=== PATIENT | female | born 1955 | race Caucasian/White ===

== ENCOUNTER 2018-10-16 12:14 | Inpatient (IN) | payer MEDICARE, SELFPAY ==
[2018-10-16] MEDS ORDERED: Ondansetron PF 4 MG/2 ML Vial IVP PRN ×2 (16:12→21:43)
[2018-10-16] MEDS ORDERED: Ondansetron ODT 4 MG TAB PO PRN (16:12)
[2018-10-16] MEDS ORDERED: Acetaminophen 650 MG Suppository PR PRN (16:12)
[2018-10-16] MEDS ORDERED: Acetaminophen 500 MG TAB PO PRN (16:12)
[2018-10-16] MEDS ORDERED: Bisacodyl 10 MG SUPP PR PRN (16:12)
[2018-10-16] MEDS ORDERED: Sodium Chloride 0.9% 1,000 ML IV SCH ×2 (16:15→22:00)
[2018-10-16] MEDS ORDERED: Morphine 2 MG/ML SYRINGE SLOW IVP PRN ×2 (16:35→22:21)
[2018-10-16] MEDS ORDERED: Morphine 2 MG/ML SYRINGE SLOW IVP SCH (16:45)
[2018-10-16 17:11] LABS: INR-International Normal Ratio 1.1; Prothrombin Time 14.5 SEC (12.0-14.7)
[2018-10-16 17:23] LABS: Hemoglobin 11.9 g/dL (12.0-16.0); Mean Corpuscular HGB CONC 32.2 g/dL (32.0-36.0); Mean Corpuscular Hemoglobin 29.7 pg (27.0-31.0); Mean Corpuscular Volume 92.4 fL (78.0-98.0); Mean Platelet Volume 9.9 fL (7.4-10.4); Platelet Count 497 thou/uL (130-400); RBC Distribution Width 19.8 % (11.5-14.5); Red Blood Cell (RBC) Count 4.02 mill/uL (4.20-5.40); White Blood Cell (WBC) Count 6.7 thou/uL (4.8-10.8)
[2018-10-16 17:30] LABS: ALT (SGPT) 103 U/L (8-55); AST (SGOT) 98 U/L (5-34); Albumin 3.1 g/dL (3.4-4.8); Alkaline Phosphatase 1098 U/L (40-150); Anion Gap 22 mmol/L (10-20); BUN (Urea Nitrogen) 33 mg/dL (9.8-20.1); Bilirubin, Total 10.2 mg/dL (0.2-1.2); Calc. Creatinine Clearance 20 mL/min (70-130); Calcium 11.9 mg/dL (7.8-10.44); Carbon Dioxide 35 mmol/L (23-31); Chloride 79 mmol/L (98-107); Estimated GFR-MDRD 29; Globulin 3.7 g/dL (2.4-3.5); Glucose 103 mg/dL (80-115); Potassium 4.8 mmol/L (3.5-5.1); Protein, Total 6.8 g/dL (6.0-8.3); Sodium 131 mmol/L (136-145)
[2018-10-16 17:31] LABS: Anisocytosis SLIGHT = 6-15 cells (100X) (0-5/hpf); Band 48 % (5-11); Lymphocytes 14 % (21-51); MDiff Complete? YES; Metamyelocyte 12 % (0-0); Monocytes 2 % (0-10); Myelocyte 1 % (0-0); Neutrophil 23 % (42-75); PLT Morphology Comment Appears Increased; Polychromasia SLIGHT = 2-3 cells (100X) (0-2/hpf); Reflex for Review?? YES; Target Cells SLIGHT = 2-5 cells (100X) (0-1/hpf); Toxic Granulation SLIGHT; Vacuoles SLIGHT
[2018-10-16] MEDS ORDERED: Piperacillin/Tazobactam 3.375 GM in Sodium Chloride 0.9% 100 ML IVPB SCH ×2 (18:00→23:59)
[2018-10-16] MEDS ORDERED: Neomycin-Polymyxin 1 ML AMP ONE (19:09)
[2018-10-16] MEDS ORDERED: Vancomycin HCl 1 GM in Premix Bag 1 BAG IVPB SCH (19:30)
[2018-10-16] MEDS ORDERED: Famotidine/PF 20 mg/2ml Vial ONE (19:31)
[2018-10-16] MEDS ORDERED: Fentanyl 250 MCG/5 ML VIAL ONE (19:31)
--- NOTE | 2018-10-16 19:35 | CT ---
CT ABDOMEN AND PELVIS WITHOUT CONTRAST: 10/16/18 PROVIDED CLINICAL HISTORY: Abdominal pain. FINDINGS: No comparisons. There are innumerable subcentimeter pulmonary nodules seen involving the visualized lung bases compat ible with metastatic disease. There are multiple hypodense hepatic masses involving both lobes of the liver compatible with hepatic metastatic disease. The largest lesion measures approximately 6.2 cm in greatest transverse dimensio n. There is conspicuous pneumoperitoneum and free intraperitoneal fluid present primarily about the righ t hepatic margin anteriorly. There is a markedly distended cecum present demonstrating focal transiti on to more normal caliber colon at the level of the hepatic flexure where there is conspicuous mural thickening and irregularity of the mucosa. There are adjacent enlarged pericolonic lymph nodes. The s olid abdominal organs are suboptimally evaluated in the absence of IV contrast material but demonstra te an otherwise unremarkable unenhanced CT appearance. There are scattered loops of gas and debris fi lled small bowel in an overall nonspecific manner. Vascular calcifications are seen. The osseous structures demonstrate no concerning lytic or blastic lesions. Postoperative changes invo lving the left hip are demonstrated. An enteric catheter is noted, the tip of which terminates in the gastric body laterally. IMPRESSION: 1. Free intraperitoneal air and free intraperitoneal fluid, compatible with perforated viscus, l ikely the right colon given its size. Findings communicated to Dr. Damon via telephone, 6:49 p.m., . 2. Right colon mass with hepatic and pulmonary metastatic disease. POS: [facility]
[2018-10-16] MEDS ORDERED: Phenylephrine HCL 10 MG/ML VIAL ONE (19:37)
[2018-10-16] MEDS: Sodium Chloride 0.9% 1,000 ML IV SCH (19:41)
[2018-10-16] MEDS ORDERED: Albumin 5% 500 ML ONE (20:05)
[2018-10-16] MEDS ORDERED: Midazolam HCl 2 mg/2 ml Vial ONE (20:37)
[2018-10-16] MEDS ORDERED: Famotidine/PF 20 mg/2ml Vial SLOW IVP SCH (21:00)
[2018-10-16] MEDS ORDERED: Succinylcholine Chloride 20 MG/ML 10 ml SYRINGE FS ONE (21:05)
[2018-10-16] MEDS ORDERED: PHENYLEPHRINE-NS 100 MCG/ML 10 ML SYRINGE ONE (21:05)
[2018-10-16] MEDS ORDERED: PROPOFOL 200 MG/20 ML VIAL ONE (21:05)
[2018-10-16] MEDS ORDERED: Morphine 10 MG/ML VIAL SLOW IVP PRN (21:43)
[2018-10-16] MEDS ORDERED: Promethazine HCl 25 MG/ML VIAL IM PRN (21:43)
[2018-10-16] MEDS ORDERED: hydrALAZINE 20 MG/ML VIAL SLOW IVP PRN (21:43)
[2018-10-16] MEDS ORDERED: Morphine 4 MG/ML VIAL SLOW IVP PRN (21:43)
[2018-10-16] MEDS ORDERED: Ventilator Sedation Protocol 1 EACH FS SCH (21:46)
[2018-10-16] MEDS ORDERED: Propofol 1,000 MG/100 ML VIAL IV PRN (22:21)
[2018-10-16] MEDS ORDERED: fentaNYL Citrate/PF 2,000 MCG in Sodium Chloride 0.9% 60 ML IV SCH (22:21)
[2018-10-16] MEDS ORDERED: Lorazepam 2 MG/ML VIAL SLOW IVP PRN (22:21)
[2018-10-16] MEDS ORDERED: DISCONTINUE PREVIOUS NARCOTIC PAIN MEDICATIONS AND BENZODIAZEPINES FS SCH (22:21)
[2018-10-16] MEDS ORDERED: Fentanyl CADD 250 ML IVPB SCH (22:21)
[2018-10-16] MEDS ORDERED: Fentanyl BOLUS 250 ML IVPB PRN (22:21)
[2018-10-16] MEDS ORDERED: Propofol BOLUS 1,000 MG/100 ML VIAL IV PRN (22:21)
[2018-10-16 22:32] LABS: Base Excess (BEa) 2.8 mEq/L (-2.0 to +3.0); CO2 Tension 52.9 mmHg (35.0-45.0); Calcium, Ionized 1.11 mmol/L (1.12-1.30); Carboxyhemoglobin (COHb) 1.1 gm% (0.0-3.0); Potassium - ABG Lab 4.03 mmol/L (3.70-5.30); pH, Arterial 7.36 (7.35-7.45)
[2018-10-16 22:33] LABS: Puncture Site RFEMORAL
[2018-10-16 22:34] LABS: ALV-art Gradient 152.075 (0-20)
[2018-10-16] MEDS ORDERED: Norepinephrine 8 MG/250 ML BAG IVPB PRN (22:41)
[2018-10-16] MEDS: Sodium Chloride 0.9% 1,000 ML IV PRN (23:30)
[2018-10-17] MEDS: D5 1/2 NS w/20 mEq KCL 1,000 ML IV SCH ×2 (00:32→09:55)
[2018-10-17] MEDS: Acetaminophen 1,000 MG in Premix Bag 1 BAG IVPB SCH ×4 (00:33→18:18)
[2018-10-17] MEDS: Piperacillin/Tazobactam 3.375 GM in Sodium Chloride 0.9% 100 ML IVPB SCH ×4 (00:34→18:19)
--- NOTE | 2018-10-17 00:53 | HP ---
PRIMARY CARE PROVIDER: Parul Houston MD PRIMARY ONCOLOGIST: Cceilio Lake MD CHIEF COMPLAINT: Abdominal pain. HISTORY OF PRESENT ILLNESS: This is a 63-year-old female, who presented to the Cancer Clinic to initiate chemotherapy after a recent diagnosis of metastatic moderately differentiated adenocarcinoma of the colon. The patient underwent recent liver biopsy in August 2018 with confirmation of metastatic colorectal carcinoma. The patient has been followed at the Cancer Clinic with initiation of chemotherapy. The patient states she had increasing abdominal pain in the last 24 hours with last bowel movement on 10/13/2018. The patient admitted to nausea and inability to hold food down without vomiting every time she swallowed liquid or food. The patient states she has decreased urination, but no specific fever. The patient states her abdomen has been firm with difficulty taking a deep breath. The patient denied any recent trauma, injury, or recent diarrhea. The patient denied taking any specific home remedy for relief. The patient states the pain became unbearable, presenting to the Cancer Clinic for her routine followup. The patient was noted with severe abdominal pain and distention, and referred to the hospitalist service for evaluation. PAST MEDICAL HISTORY: 1. Stage IV colon cancer with hepatic metastasis. 2. Severe protein-calorie malnutrition. 3. Jaundice. 4. Iron deficiency anemia. 5. Gastroesophageal reflux disease. 6. Tobacco abuse. PAST SURGICAL HISTORY: 1. Status post AV malformation repair. 2. Status post CT-guided liver biopsy. 3. Status post EGD. CURRENT MEDICATIONS: 1. Pepcid 40 mg p.o. nightly. 2. Tramadol 50 mg p.o. t.i.d. p.r.n. 3. Multivitamin one tablet p.o. daily. 4. Phenergan 25 mg p.o. q.6 hours p.r.n. ALLERGIES: NO KNOWN DRUG ALLERGIES. FAMILY HISTORY: Positive for colon cancer in her sister. SOCIAL HISTORY: The patient is , accompanied by her in the hospital. Resides in [place], [place]. Retired. Smokes up to a pack of cigarettes daily. No alcohol or illicit drug use. REVIEW OF SYSTEMS: CONSTITUTIONAL: Negative for weight loss or gain, ability to conduct usual activities. SKIN: Negative for rash, itching. EYES: Negative for double vision, pain. ENT/MOUTH: Negative for nose bleeding, neck stiffness, pain, tenderness. CARDIOVASCULAR: Negative for palpitations, dyspnea on exertion, orthopnea. RESPIRATORY: Negative for shortness of breath, wheezing, cough, hemoptysis, fever or night sweats. GASTROINTESTINAL: Negative for poor appetite, abdominal pain, heartburn, nausea, vomiting, constipation, or diarrhea. GENITOURINARY: Negative for urgency, frequency, dysuria, nocturia. MUSCULOSKELETAL: Negative for pain, swelling. NEUROLOGIC/PSYCHIATRIC: Negative for anxiety, depression. ALLERGY/IMMUNOLOGIC: Negative for skin rash, bleeding tendency. Otherwise negative except as stated per HPI. PHYSICAL EXAMINATION: VITAL SIGNS: Currently, blood pressure 83/62, pulse 120, respiratory rate is 18, temperature 97.5 degrees Fahrenheit, and O2 saturation 94% on 2 L/minute via nasal cannula. GENERAL APPEARANCE: This is a 63-year-old female, ill appearing, cachectic, lethargic, in moderate distress. HEENT: Pupils are equal, round, reactive to light and accommodation. Extraocular muscles are intact. Sunken globes bilaterally. Nares patent. OP is clear. Teeth in poor repair. NECK: Supple. No cervical adenopathy. No thyromegaly. No carotid bruits. No JVD appreciated. Cervical spine with full active and passive range of motion. No meningeal signs noted. CHEST: Diminished breath sounds in the bases bilaterally. CARDIOVASCULAR: S1 and S2 with tachycardia. No murmur, rub, or gallop appreciated. ABDOMEN: Hard and firm with tenderness to palpation diffusely. Positive mass in the periumbilical region and left lower quadrant. Bowel sounds diminished. Positive rebound and guarding noted. EXTREMITIES: Warm and dry with fair turgor. Severe muscle atrophy globally. Pulses palpable bilaterally at the dorsalis pedis, posterior tibial, and popliteal arteries bilaterally. Capillary refill less than 2 seconds. SKIN: Shows generalized jaundice. PERTINENT LAB AND X-RAY FINDINGS: Sodium 134, potassium 4.6, chloride 86, CO2 of 29, anion gap 24, BUN 26, creatinine 1.18, estimated GFR 46, glucose 126, uric acid 3.7, calcium 11.3, phosphorus 4.6, and total bilirubin 10.3, previously noted 1.4 on 10/02/2018. AST 102, ALT 115, and alkaline phosphatase 1257. Lactate dehydrogenase 224 and albumin 3.3. Carcinoembryonic antigen 376.5, CA 19-9 antigen 48,820. CBC dated 10/02/2018 showed a white blood cell count of 9.6, hemoglobin 11, hematocrit 35, platelet count 494 with 79% neutrophils. CT of the abdomen and pelvis pending at the time of this dictation. ASSESSMENT AND PLAN: 1. Acute bowel obstruction. The patient will be admitted to the medical floor. We will obtain a stat CT imaging of the abdomen and pelvis. Stat General Surgery consult for evaluation and likely acute surgical intervention. Place NG tube. Place Finney catheter. Morphine sulfate 2 mg IV q.4 hours p.r.n. N.p.o. status. Continue intravenous normal saline at 100 mL/hour. 2. Stage IV colon carcinoma. See #1 above. We will consult medical oncology service for any further recommendations. Consult palliative care service given the extensive nature and poor prognosis. 3. Sepsis. We will continue empiric antibiotic therapy with vancomycin 1 g IV q.12 hours with additional Zosyn 3.375 g IV every 6 hours. Initiate IV fluid resuscitation per protocol. Serial lactic acid. 4. Obstructive jaundice secondary to metastatic colon cancer. We will consult GI service for any further recommendations. The patient may be deemed an appropriate candidate for ERCP with biliary stent placement. Repeat CMP and monitor serial total bilirubin. 5. Severe protein-calorie malnutrition secondary to stage IV colon cancer. Consider TPN or PPN if deemed appropriate postoperatively. Poor prognosis given nutritional status. 6. Gastroesophageal reflux. Protonix 40 mg IV daily. 7. Prophylaxis. SCDs while in bed. Protonix 40 mg IV q.24 hours. 8. Code status is do not resuscitate. Confirmed with the patient. Surrogate medical decision maker is the patient's spouse. Consult palliative care service. Total critical care time is 45 minutes. Job ID: [id number]
--- NOTE | 2018-10-17 01:25 | CON ---
DATE OF CONSULTATION: 10/16/2018 HISTORY OF PRESENT ILLNESS: The patient is a 63-year-old female, recently diagnosed with colon cancer. Her other medical record information is under the name Hillary Bright with the same date of . She presented complaining of abdominal pain and was sent from Dr. Lake's office. She underwent a stat CT, which showed free intraperitoneal air and free intraperitoneal fluid compatible with a perforated viscus. The patient also became jaundiced with increase in her total bilirubin. Previous contrasted CT showed numerous lesions scattered throughout the liver, also mass-like lesions in the region of the shelli hepatis. PAST MEDICAL HISTORY: Significant for melanomas. PAST SURGICAL HISTORY: Includes melanoma removal and removal of hemangioma from her brain. SOCIAL HISTORY: She smokes one pack per day. Rarely drinks alcohol. FAMILY HISTORY: Significant for sister with colon cancer. REVIEW OF SYSTEMS: Ten-systems were reviewed and were negative except for above. HOME MEDICATIONS: Include, 1. Multivitamin. 2. Tramadol 50 mg p.o. t.i.d. ALLERGIES: NO KNOWN ALLERGIES. PHYSICAL EXAMINATION: GENERAL: Shows an ill-appearing, cachectic, jaundiced female, no acute distress. VITAL SIGNS: Temperature is 97.5, pulse 79, respiratory rate 16, blood pressure 123/58. HEENT: Significant for scleral icterus. NECK: Supple. CHEST: Clear. CARDIOVASCULAR: Regular rate and rhythm. ABDOMEN: Tender diffusely, somewhat distended. Bowel sounds are absent. She does have guarding. RECTAL: Deferred. EXTREMITIES: Cachexia. LABORATORY DATA: Previous laboratory from earlier this month shows hemoglobin 10.8, hematocrit 34.8, platelet count 494. Chemistry significant for sodium 134, BUN 26, creatinine 1.18, glucose 126, calcium 11.3, total bilirubin 10.3, AST 102, ALT 115, alkaline phosphatase of 1257. Previous CEA showed a level of 376. CA 19-9 was 48,000. ASSESSMENT: 1. Metastatic colon cancer. 2. Perforated viscus, probably secondary to obstruction from her colon cancer. 3. Jaundice, I suspect the patient probably has lymphadenopathy and portal hepatitis causing obstruction. RECOMMENDATIONS: 1. The patient has already been taken to the OR by Dr. Damon. 2. She may need PTC if her jaundice worsens. 3. Prognosis is grim. Job ID: [id number]
[2018-10-17] MEDS: Sodium Chloride 0.9% 1,000 ML IV PRN (02:51)
[2018-10-17] MEDS: Sodium Chloride 0.9% 1,000 ML IV SCH ×5 (03:41→20:00)
[2018-10-17 07:33] LABS: Mean Corpuscular HGB CONC 31.9 g/dL (32.0-36.0); Mean Corpuscular Hemoglobin 29.6 pg (27.0-31.0); Mean Corpuscular Volume 92.8 fL (78.0-98.0); Mean Platelet Volume 10.7 fL (7.4-10.4); Platelet Count 353 thou/uL (130-400); RBC Distribution Width 19.6 % (11.5-14.5); Red Blood Cell (RBC) Count 3.04 mill/uL (4.20-5.40); White Blood Cell (WBC) Count 3.9 thou/uL (4.8-10.8)
[2018-10-17 07:38] LABS: Lactic Acid 2.5 mmol/L (0.5-2.2)
[2018-10-17 07:49] LABS: ALT (SGPT) 62 U/L (8-55); AST (SGOT) 119 U/L (5-34); Albumin 1.6 g/dL (3.4-4.8); Alkaline Phosphatase 331 U/L (40-150); Anion Gap 13 mmol/L (10-20); BUN (Urea Nitrogen) 30 mg/dL (9.8-20.1); Bilirubin, Total 5.1 mg/dL (0.2-1.2); Calc. Creatinine Clearance 38 mL/min (70-130); Carbon Dioxide 23 mmol/L (23-31); Chloride 106 mmol/L (98-107); Estimated GFR-MDRD 58; Globulin 1.5 g/dL (2.4-3.5); Glucose 139 mg/dL (80-115); Potassium 3.6 mmol/L (3.5-5.1); Protein, Total 3.1 g/dL (6.0-8.3); Sodium 138 mmol/L (136-145)
[2018-10-17 08:50] LABS: Actual Bicarbonate (HCO3a) 28.4 mEq/L (22-28); Base Excess (BEa) 5.2 mEq/L (-2.0 to +3.0); CO2 Tension 36.7 mmHg (35.0-45.0); Calcium, Ionized 1.09 mmol/L (1.12-1.30); Carboxyhemoglobin (COHb) 1.2 gm% (0.0-3.0); Hemoglobin (Hb) 11.4 g/dL (12.0-16.0); O2 Tension (PaO2) 73.1 mmHg (> 80.0); Potassium - ABG Lab 4.02 mmol/L (3.70-5.30); pH, Arterial 7.51 (7.35-7.45)
[2018-10-17 08:52] LABS: ALV-art Gradient 166.225 (0-20); Puncture Site LBA
--- NOTE | 2018-10-17 09:03 | CON ---
DATE OF CONSULTATION: CHIEF COMPLAINT: Abdominal pain, nausea, and vomiting. HISTORY OF PRESENT ILLNESS: The patient is a 63-year-old female who developed some reflux in June. She went to the emergency room to try and get medications and was admitted. She underwent an extensive workup including a CT scan showing a large mass at the shelli hepatis with extension toward the colon and multiple adenopathy. She underwent colonoscopy with biopsy that came back adenocarcinoma consistent with colorectal. Recently, she has been having progressive jaundice and dark colored urine, and she developed abdominal pain over the last 3 days. She has been vomiting. Her last flatus was on Sunday, 3 days ago. PAST MEDICAL HISTORY: Probably some COPD and history of AVM of the brain. PAST SURGICAL HISTORY: She had an AVM clipping of the brain in [place]. She had a fractured hip in 2016, repair. She has had a fractured right shoulder that was treated non operatively. MEDICATIONS: Include; 1. Tramadol. 2. Colace. 3. Ibuprofen. SOCIAL HISTORY: She smokes 1 pack per day. No alcohol. 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 She is . PHYSICAL EXAMINATION: VITAL SIGNS: Temperature 97.5, pulse 120, blood pressure 83/62. She weighs approximately 89 pounds. She lost 5 pounds over the last month. GENERAL: She is a very thin, frail, cachectic female, lying still. She has an NG tube in place. She says that since the NG has been placed, she feels better. LUNGS: Clear. Hyper-resonant. ABDOMEN: Distended with some mild tenderness. No peritoneal signs. EXTREMITIES: Extremely wasted and thin. LABORATORY DATA: Her sodium is 134, chloride 86, BUN 26, creatinine 1.18, T bilirubin of 10.3. Her LFTs are all elevated. CEA is 376. Rest of her lab is not back yet. Her last hemoglobin was 10.8 on the 02 of October. ASSESSMENT: Probable obstructing colon cancer with obstructed bile duct. The patient is not sure if she wants anything done at this time. PLAN: Plan is to repeat the CT to define the site of obstructions. Discussed this case with Dr. Skaggs in GI, who feels he may be able to put a stent up the bile duct to decompress it. However, we will have to see what to do after the CT. We will continue NG suction. Job ID: [id number]
[2018-10-17 09:40] LABS: Band 43 % (5-11); Dohle Bodies SLIGHT; Hypochromia SLIGHT = 6-15 cells (100X) (0-5/hpf); Lymphocytes 14 % (21-51); MDiff Complete? YES; Metamyelocyte 22 % (0-0); Monocytes 5 % (0-10); Myelocyte 3 % (0-0); Neutrophil 12 % (42-75); PLT Morphology Comment Appears Adequate; Polychromasia SLIGHT = 2-3 cells (100X) (0-2/hpf); Reactive Lymphocytes 1 % (0-10); Toxic Granulation SLIGHT; Vacuoles SLIGHT
[2018-10-17] MEDS: Famotidine 20 MG TAB PO SCH (09:55)
[2018-10-17] MEDS: Famotidine/PF 20 mg/2ml Vial SLOW IVP SCH (09:59)
[2018-10-17] MEDS: Pantoprazole 40 MG VIAL IVP SCH (09:59)
[2018-10-17] MEDS: Fluconazole In NaCl,Iso-Osm 200 MG in Premix Bag 1 BAG IVPB SCH (09:59)
--- NOTE | 2018-10-17 10:13 | RAD ---
PORTABLE CHEST ONE VIEW: 10/17/2018 8:33 a.m. HISTORY: Respiratory failure. COMPARISON: 10/04/2018 FINDINGS: A right-sided Port-A-Cath remains in place. There has been interval placement of an endotracheal tub e, with the tip at the level of the clavicular heads, and a nasogastric tube is seen in the stomach. The heart size is normal. No atelectatic changes are seen at the right lung base. No lobar consoli dation, pneumothoraces, or large effusions are noted. POS: [facility]
--- NOTE | 2018-10-17 10:30 | OP ---
DATE OF PROCEDURE: 10/16/2018 PROCEDURES PERFORMED: Exploratory laparotomy, right hemicolectomy, ileostomy. INDICATIONS: This is a 63-year-old female who has known near obstructing right colon cancer, who came in with a two-day history of severe abdominal pain. CT scan showing free air and a perforated colon. FINDINGS: She had extensive fecal peritonitis, a perforated necrotic cecum. She had an obstructing mass at the hepatic flexure. Her liver was full of tumor. DESCRIPTION OF PROCEDURE: After an informed consent was obtained, the patient was taken to the operating room and given general endotracheal anesthesia. She was placed in the supine position. Abdomen was prepped and draped in usual fashion. A midline incision was performed, subcu divided sharply, the fascia incised, there were free air and fecal peritonitis. The abdomen was explored. I was able to find the offending leak in the pelvis, in the cecum; just to control fecal spillage, winded up putting a [id number] there. There were several areas of necrosis in the right colon. The right colon was mobilized and then the hepatic flexure mobilized. I was able to get distal to the obstruction. Then, the colon was divided with the TONY distal to the obstruction. Then, the mesentery divided utilizing the LigaSure. The mesentery of the terminal ileum was divided with the LigaSure and the terminal ileum was divided with the TONY. The specimen sent to pathology for further analysis. The abdomen was thoroughly irrigated with 8 L of saline. After mopping up as much as I could possibly get of the contamination, then 8 L irrigation, eventually winded up creating an ostomy on the right side. The skin was grasped with a Alli clamp. A circular incision performed. The fascia was divided cruciate three finger dilatation. The ileum brought through this opening and secured to the posterior fascia with interrupted 3-0 Vicryl suture. Then, the omentum was placed anterior. The abdomen irrigated with . The fascia closed with a running looped #1 PDS. The subcu was irrigated with and loosely approximated with skin екатерина as she was extremely thin, bandage applied. Then, the ostomy was matured. First of all the bowel was approximated to the anterior fascia with interrupted 3-0 Vicryl suture, then the staple line excised and the ostomy created by inverting the ileum to create a bud and then secured to the dermis with interrupted 3-0 Vicryl suture. A wafer was applied in the bag. The patient tolerated the procedure well, but remained in critical condition, transferred to ICU, intubated. Job ID: [id number]
[2018-10-17] MEDS: Enoxaparin Sodium 30 MG/0.3 ML SYRINGE SC SCH (10:54)
--- NOTE | 2018-10-17 11:52 | PRG ---
DATE OF SERVICE: SUBJECTIVE: The patient has been extubated. She is complaining primarily of thirst. She is off the Ubaldo, still on some levophed. She has expressed to me the wish that she wants to at home. She wants to go home as soon as possible. OBJECTIVE: VITAL SIGNS: On examination, her temperature is 98.5, pulse 126, and blood pressure 94/67. GENERAL: She is awake, alert. NG tube is in place. She has had 1000 out the NG tube of bilious fluid. LUNGS: Clear. ABDOMEN: Distended. The incision is dry. Ostomy is healthy. No output. LABORATORY DATA: Her white count is 3.9, hemoglobin and hematocrit are 9 and 28, and platelet count 353. Her electrolytes; CO2 is 23, BUN of 30, and glucose 139. Her T bilirubin is down from 10 to 5. ASSESSMENT: Fecal peritonitis. PLAN: Continue IV fluids and NG suction, and antibiotics. Job ID: [id number]
--- NOTE | 2018-10-17 13:31 | CON ---
DATE OF CONSULTATION: REASON FOR CONSULTATION: Colon cancer. HISTORY OF PRESENT ILLNESS: A 63-year-old female with history of stage IV adenocarcinoma of the colon with mets to lung and liver, who presented to Oncology Clinic to start chemotherapy today and was found to be severely jaundiced with severe abdominal pain and constipation. The patient stated she had not had a bowel movement since Sunday and has not been passing any gas, and her abdominal pain has been increasing in the last 3 days with a sudden sharp increase last night. She also complains of nausea and vomiting. Denies any fever, shortness of breath, or cough. The patient was referred to the hospital for direct admission. Upon arrival to the hospital, she had a CT of the abdomen and pelvis without contrast that again showed pulmonary nodules and liver masses, but was conspicuous for pneumoperitoneum and free intraperitoneal fluid, present primarily about the right hepatic margin anteriorly, which was markedly distended. Cecum demonstrating focal transition to more normal-caliber colon at the level of hepatic flexure, but there were conspicuous mural thickening and irregularity of the mucosa. This was suspicious for free intraperitoneal air and free intraperitoneal fluid compatible with perforated viscus, likely from the right colon. The patient was evaluated by Dr. Damon and Dr. Skaggs, and was taken to the OR for diverting colostomy. The patient was extubated this morning. The patient states that she feels much better and currently does not have any pain. The patient is complaining of a very dry mouth and wanting to eat. However, she is currently n.p.o. with NG tube placement. In discussion with the patient and nursing staff, the patient would like comfort care only and to go home with home hospice. She also states she does not want any further CPR or intubation and was to be DNR. The patient also expressed her wishes to speak to our product support technician. REVIEW OF SYSTEMS: A 10-point review of systems negative except as per HPI. PAST MEDICAL HISTORY: Metastatic colon cancer and tobacco abuse. PAST SURGICAL HISTORY: AV malformation repair and diverting colostomy. SOCIAL HISTORY: Tobacco abuse. She is and lives with her . ALLERGIES: NO KNOWN DRUG ALLERGIES. CURRENT MEDICATIONS: Reviewed. PHYSICAL EXAMINATION: VITAL SIGNS: Temperature 98.5, pulse 126, respirations 23, saturating 93% on 2 L by nasal cannula, and blood pressure 94/67. GENERAL APPEARANCE: The patient lying in bed, cachectic and ill-appearing, but in no acute distress. HEENT: Normocephalic and atraumatic. The patient has depressed globes bilaterally and temporal wasting. Scleral icterus is noted. NECK: Supple. No lymphadenopathy. CARDIOVASCULAR: S1 and S2 with tachycardia and regular rhythm. RESPIRATIONS: Clear to auscultation bilaterally. ABDOMEN: Mild tenderness diffusely to palpation. Ostomy present in the right upper quadrant and midline scar is dressed. EXTREMITIES: No edema. SKIN: Generalized jaundice, which is improved from yesterday. NEUROLOGIC: Cranial nerves 2 through 12 grossly intact. PSYCHIATRIC: Awake, alert, and oriented x3. Appropriate mood and affect. LABORATORY DATA: White blood cells 3.9, hemoglobin 9.0, platelets 353. Sodium 138, potassium 3.6, BUN 30, creatinine 0.96. Lactic acid 6.6 yesterday, down to 2.5 this morning. Calcium 11.9 yesterday, 7.0 today. Total bilirubin 10.2 yesterday, 5.1 today. Alkaline phosphatase 1098 yesterday, down to 331 today. Albumin 3.1 on admission, currently 1.6. IMAGING DATA: CT of abdomen and pelvis without contrast shows free intraperitoneal air and free intraperitoneal fluid compatible with perforated viscus likely within the right colon, also right colonic mass with hepatic and pulmonary metastatic disease. ASSESSMENT AND PLAN: A 63-year-old female with metastatic colon cancer who was due for chemotherapy yesterday, presented with worsening abdominal pain and jaundice and found to have a perforated colon and is now status post diverting ostomy. The patient is much improved after surgery with only minimal tenderness in the abdomen and improvement in her jaundice. The patient has a very poor prognosis and at this time, she requests comfort care only. I would like to go home with home hospice. I spoke in detail with her about this and she would also like to be DNR/DNI at this time. She has requested the product support technician, and we will arrange this for her. Palliative Care has been consulted to help arrange home hospice. For the time being, she does require bowel rest and continued NG tube suction and if she continues to improve over the next couple of days, she can start on a diet and hopefully be able to go home soon. We will continue to follow along with you. Job ID: [id number] [facility]
[2018-10-17 13:38] VITALS: BMI 17.2
[2018-10-17] MEDS: Morphine 4 MG/ML VIAL SLOW IVP PRN (13:39)
[2018-10-17] MEDS: Norepinephrine 8 MG/250 ML BAG IVPB PRN (15:41)
--- NOTE | 2018-10-17 16:11 | PDOC.PN ---
- Subjective Encounter Start Date: 10/17/18 Encounter Start Time: 15:00 Subjective: f/u for sepsis due to peritonitis from perforated colon in context -: of metastatic colon ca. s/p laparotomy with colon resection and ileostomy -: with abd washout. Off ventilator but requires Levaphed. - Objective Resuscitation Status - Order Detail: 10/16/18 16:06 Resuscitation Status Routine Resuscitation Status: DNAR: NO Resuscitation Discussed with: Patient MAR Reviewed: Yes Vital Signs & Weight: Vital Signs (12 hours) Temp Pulse Resp BP Pulse Ox 10/17/18 12:00 98.6 F 10/17/18 09:01 126 H 23 H 93 L 10/17/18 09:00 95 10/17/18 08:11 134 H 97/67 10/17/18 06:00 17 10/17/18 05:00 98.5 F Weight Admit Weight 91 lb Weight 91 lb 7.869 oz Most Recent Monitor Data Heart Rate from ECG 125 NIBP 109/48 NIBP BP-Mean 68 Respiration from ECG 26 SpO2 94 I&O: 10/16/18 10/17/18 10/18/18 06:59 06:59 06:59 Intake Total 3117.5 0 Output Total 1270 656 Balance 1847.5 -656 Result Diagrams: 10/17/18 03:30 10/17/18 03:30 Additional Labs: Microbiology 10/16/18 16:45 Venous blood - Left Hand Blood Culture - Preliminary Specimen has been received and culture in progress. No Growth to date. 10/16/18 16:45 Port - Right Subclavian Vein Blood Culture - Preliminary Specimen has been received and culture in progress. No Growth to date. Laboratory Tests 10/16/18 10/16/18 10/16/18 16:45 16:45 16:45 WBC Hgb Plt Count Neutrophils % (Manual) Band Neuts % (Manual) Sodium 131 L Carbon Dioxide 35 H BUN 33 H Creatinine 1.76 H Lactic Acid 6.6 H* Calcium 11.9 H Total Bilirubin 10.2 H AST 98 H ALT 103 H Alkaline Phosphatase 1098 H Cortisol 168.80 10/16/18 10/17/18 10/17/18 16:45 03:30 03:30 WBC 6.7 Hgb 11.9 L Plt Count 497 H Neutrophils % (Manual) 23 L Band Neuts % (Manual) 48 H Sodium Carbon Dioxide BUN Creatinine Lactic Acid 2.5 H Calcium Total Bilirubin 5.1 H AST 119 H ALT 62 H Alkaline Phosphatase 331 H Cortisol 10/17/18 03:30 WBC Hgb Plt Count Neutrophils % (Manual) 12 L Band Neuts % (Manual) 43 H Sodium Carbon Dioxide BUN Creatinine Lactic Acid Calcium Total Bilirubin AST ALT Alkaline Phosphatase Cortisol Radiology Reviewed by me: Yes (CT abd/pel - perforated viscus, free air, R colon mass with mets) EKG Reviewed by me: Yes (Tele - Sinus tachycardia) Phys Exam - Physical Examination cachetic, alert, jaundiced NGT in place HEENT: PERRLA, oral pharynx no lesions Neck: no nodes, no JVD, supple, full ROM diminished in bilat [place] Respiratory: no wheezing, no rales S1, S2, tachycardic Cardiovascular: no significant murmur, no rub + ileostomy, drains in place +TTP, surgical dressing in place cachetic, generalized severe atrophy Musculoskeletal: pulses present Neurological: normal sensation, moves all 4 limbs Psychiatric: A&O x 3 poor turgor Skin: cap refill <2 seconds Deviation from normal: Finney with dark urine Dx/Plan (1) Large bowel perforation Code(s): K63.1 - PERFORATION OF INTESTINE (NONTRAUMATIC) Status: Acute Comment: colon perforation due to colon carcinoma with peritonitis, s/p resection with drain placement and washout, tenuous clinically given co-morbid status, local care, continue Zosyn (2) Septic shock Code(s): A41.9 - SEPSIS, UNSPECIFIED ORGANISM; R65.21 - SEVERE SEPSIS WITH SEPTIC SHOCK Status: Acute Comment: Secondary to peritonitis and bowel perforation, continue IVF's, Levophed and wean as clinically indicated (3) Peritonitis (acute) generalized Code(s): K65.0 - GENERALIZED (ACUTE) PERITONITIS Status: Acute Comment: See above, POD#1 with bowel resection (4) Obstructive jaundice due to cancer Code(s): K83.1 - OBSTRUCTION OF BILE DUCT; C80.1 - MALIGNANT (PRIMARY) NEOPLASM , UNSPECIFIED Status: Chronic Comment: May consider stent placement if worsens post-op, GI consultation (5) Colon carcinoma metastatic to liver Code(s): C18.9 - MALIGNANT NEOPLASM OF COLON, UNSPECIFIED; C78.7 - SECONDARY MALIG NEOPLASM OF LIVER AND INTRAHEPATIC BILE DUCT Status: Chronic Comment: Stage IV disease with hepatic/pulmonary involvement, Hospice consult (6) MISHA (acute kidney injury) Code(s): N17.9 - ACUTE KIDNEY FAILURE, UNSPECIFIED Status: Acute Comment: Improved, continue IVF's, avoid nephrotoxic meds and limit contrast exposure - Plan plan discussed w/ family, continue antibiotics, social human services assistants, DVT proph w/ SCDs Continue critical support -: Wean Levophed as clinically indicated -: Continue Zosyn -: Morphine Sulfate IV for pain control -: AM lab: BMP, CBC * Hospice consult, palliative care * Code Status: DNR confirmed with patient
[2018-10-17] MEDS ORDERED: Acetaminophen 500 MG TAB PO PRN (16:21)
[2018-10-18] MEDS: Piperacillin/Tazobactam 3.375 GM in Sodium Chloride 0.9% 100 ML IVPB SCH ×5 (00:25→23:21)
--- NOTE | 2018-10-18 00:45 | CON ---
DATE OF CONSULTATION: HISTORY OF PRESENT ILLNESS: Ms. Bright is a 63-year-old female. Apparently, she was recently diagnosed with colon cancer. She presented this admission with free air. She has been explored. She now has an ileostomy. She was found to have significant fecal contamination of her abdominal cavity. She was transferred back to the critical unit for overnight mechanical ventilation. I was consulted to assist in her management. PAST MEDICAL HISTORY: 1. Remarkable from removal of a melanoma in the past. 2. 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 3. She is pack-a-day smoker, rarely drinks. FAMILY HISTORY: She has a family history of having a sister with colon cancer. REVIEW OF SYSTEMS: 10-point review of systems is otherwise negative. MEDICATIONS: Prior to admission, she was on tramadol. ALLERGIES: SHE HAS NO DRUG ALLERGIES. PHYSICAL EXAMINATION: VITAL SIGNS: Afebrile, blood pressure 109/48, heart rates in the 110 to 120 range, respiratory rates in the 20s. GENERAL: She is cachectic. She nodded quickly to questions, moved all her extremities equally. HEENT: Pupils are equal. Sclerae are anicteric. LUNGS: Clear. HEART: Regular rhythm. S1 and S2 are normal. ABDOMEN: Soft and nontender. EXTREMITIES: Without clubbing, cyanosis or edema. LABORATORY DATA: White count 3.9, hemoglobin 9.0, platelets 353. Electrolytes are normal. BUN is 30, creatinine 0.96. Blood gas this morning 7.51, CO2 of 36, pO2 73. IMAGING DATA: Chest radiographs this morning reviewed by me did not show any infiltrates. Intake and output this morning is positive 1847. IMPRESSION: 1. Fecal peritonitis after a colon perforation secondary to an obstructing colon mass. 2. Status post resection of the perforated gangrenous section of colon as well as a colon mass, now with a diverting ileostomy. 3. Overnight mechanical ventilation. I felt she was a candidate for extubation after spontaneous breathing trial this morning. This has been done successfully. She has been stable throughout the afternoon. Critical care time 35 minutes. Job ID: [id number]
[2018-10-18] MEDS: Sodium Chloride 0.9% 1,000 ML IV SCH ×4 (01:00→12:54)
[2018-10-18] MEDS: Norepinephrine 8 MG/250 ML BAG IVPB PRN (01:32)
[2018-10-18 05:21] LABS: Anion Gap 12 mmol/L (10-20); BUN (Urea Nitrogen) 34 mg/dL (9.8-20.1); Calc. Creatinine Clearance 45 mL/min (70-130); Calcium 7.9 mg/dL (7.8-10.44); Carbon Dioxide 24 mmol/L (23-31); Chloride 110 mmol/L (98-107); Estimated GFR-MDRD 70; Potassium 3.3 mmol/L (3.5-5.1); Sodium 143 mmol/L (136-145)
[2018-10-18 05:38] LABS: Glucose 36 mg/dL (80-115)
[2018-10-18 05:43] LABS: Band 59 % (5-11); Dohle Bodies SLIGHT; Hemoglobin 8.9 g/dL (12.0-16.0); Lymphocytes 5 % (21-51); MDiff Complete? YES; Mean Corpuscular HGB CONC 32.1 g/dL (32.0-36.0); Mean Corpuscular Hemoglobin 29.5 pg (27.0-31.0); Mean Platelet Volume 10.4 fL (7.4-10.4); Metamyelocyte 3 % (0-0); Monocytes 4 % (0-10); Neutrophil 29 % (42-75); Platelet Count 349 thou/uL (130-400); RBC Distribution Width 19.1 % (11.5-14.5); Red Blood Cell (RBC) Count 3.01 mill/uL (4.20-5.40); Toxic Granulation SLIGHT
[2018-10-18] MEDS ORDERED: Dextrose 50% Abboject 50 ML SYRINGE ONE ×2 (05:43→06:14)
[2018-10-18] MEDS ORDERED: HumaLOG 300 UNITS/3 ML VIAL SC PRN ×2 (06:14)
[2018-10-18] MEDS ORDERED: Dextrose 5% in Water 1,000 ML IV PRN (06:14)
[2018-10-18] MEDS ORDERED: Dextrose 50% Abboject 50 ML SYRINGE IVP PRN (06:14)
[2018-10-18] MEDS: Morphine 4 MG/ML VIAL SLOW IVP PRN ×3 (09:06→23:21)
[2018-10-18] MEDS: Pantoprazole 40 MG VIAL IVP SCH (09:09)
[2018-10-18] MEDS: Famotidine/PF 20 mg/2ml Vial SLOW IVP SCH (09:10)
--- NOTE | 2018-10-18 09:11 | RAD ---
RADIOGRAPH CHEST 1 VIEW: Date: 10/18/2018 Time: 5:39 a.m. HISTORY: A 63-year-old female with respiratory distress. COMPARISON: 10/17/2018 at 8:33 a.m. FINDINGS: The ETT has been removed. The NGT remains. The right IJ implantable vascular port remains, with the distal tip overlying the SVC. No cardiomegaly. A new finding of silhouetting of the lateral portio n of the right hemidiaphragm and the entire left hemidiaphragm, associated with increased haziness of the lower three-fourths of the bilateral lungs. No pneumothorax. IMPRESSION: 1. Interval increase in the volume of the bilateral pleural effusions. 2. Status post extubation. 3. Questionable noncardiogenic pulmonary interstitial edema. MELITON [] POS: ALEIDA
[2018-10-18] MEDS: Famotidine 20 MG TAB PO SCH (09:13)
[2018-10-18] MEDS: Fluconazole In NaCl,Iso-Osm 200 MG in Premix Bag 1 BAG IVPB SCH (09:21)
[2018-10-18] MEDS ORDERED: Nicotine 21 MG PATCH TD SCH ×2 (10:50→13:00)
[2018-10-18] MEDS: Dextrose 5 % And 0.9 % NaCl 1,000 ML IV SCH ×2 (14:13→17:54)
[2018-10-18] MEDS: Enoxaparin Sodium 30 MG/0.3 ML SYRINGE SC SCH (14:13)
--- NOTE | 2018-10-18 14:43 | PDOC.PN ---
- Subjective Encounter Start Date: 10/18/18 Encounter Start Time: 14:35 Subjective: f/u for septic shock due to perforated colon in context of metastatic colon -: carcinoma s/p resection, ileostomy POD #2. Remains on NGT with NPO status -: States feeling better overall and wants to eat something. - Objective Resuscitation Status - Order Detail: 10/16/18 16:06 Resuscitation Status Routine Resuscitation Status: DNAR: NO Resuscitation Discussed with: Patient MAR Reviewed: Yes Vital Signs & Weight: Vital Signs (12 hours) Temp 10/18/18 04:00 99 F Weight Admit Weight 91 lb Weight 91 lb 7.869 oz Most Recent Monitor Data Heart Rate from ECG 133 NIBP 108/56 NIBP BP-Mean 71 Respiration from ECG 26 SpO2 89 I&O: 10/17/18 10/18/18 10/19/18 06:59 06:59 06:59 Intake Total 3117.5 5470.5 Output Total 1270 2276 Balance 1847.5 3194.5 Result Diagrams: 10/18/18 04:40 10/18/18 04:40 Additional Labs: Accuchecks 10/18/18 10/18/18 10/18/18 09:31 06:36 06:10 POC Glucose 90 196 H 54 L* 10/18/18 05:43 POC Glucose 35 L* Microbiology 10/16/18 16:45 Venous blood - Left Hand Blood Culture - Preliminary Specimen has been received and culture in progress. No Growth to date. 10/16/18 16:45 Venous blood - Left Hand Blood Culture - Preliminary NO GROWTH AT 48 HOURS 10/16/18 16:45 Port - Right Subclavian Vein Blood Culture - Preliminary Specimen has been received and culture in progress. No Growth to date. 10/16/18 16:45 Port - Right Subclavian Vein Blood Culture - Preliminary Gram Negative Rodney Laboratory Tests 10/16/18 10/16/18 10/16/18 16:45 16:45 16:45 WBC Hgb Plt Count Neutrophils % (Manual) Band Neuts % (Manual) Sodium 131 L Carbon Dioxide 35 H BUN 33 H Creatinine 1.76 H Lactic Acid 6.6 H* Calcium 11.9 H Total Bilirubin 10.2 H AST 98 H ALT 103 H Alkaline Phosphatase 1098 H Cortisol 168.80 10/16/18 10/17/18 10/17/18 16:45 03:30 03:30 WBC 6.7 Hgb 11.9 L Plt Count 497 H Neutrophils % (Manual) 23 L Band Neuts % (Manual) 48 H Sodium Carbon Dioxide BUN Creatinine Lactic Acid 2.5 H Calcium Total Bilirubin 5.1 H AST 119 H ALT 62 H Alkaline Phosphatase 331 H Cortisol 10/17/18 10/18/18 03:30 04:40 WBC 3.9 L Hgb 9.0 L Plt Count Neutrophils % (Manual) 12 L 29 L Band Neuts % (Manual) 43 H 59 H Sodium Carbon Dioxide BUN Creatinine Lactic Acid Calcium Total Bilirubin AST ALT Alkaline Phosphatase Cortisol Radiology Reviewed by me: Yes (PCXR - bilat pleural effusions) EKG Reviewed by me: Yes (Tele - sinus tachycardia in 120-130's) Phys Exam - Physical Examination alert, responsive, NGT in place + scleral icterus HEENT: PERRLA, oral pharynx no lesions Neck: no nodes, no JVD, supple, full ROM diminished in bases bilat, coarse bilat Respiratory: no wheezing + tachycardia S1, S2 Cardiovascular: no significant murmur, no rub firm, surgical dressing in place, + drains, + ileostomy minimal bowel sounds, ostomy pink Musculoskeletal: no edema, pulses present Neurological: normal sensation, moves all 4 limbs Psychiatric: A&O x 3 Skin: normal turgor, cap refill <2 seconds Deviation from normal: Finney with mariya urine Dx/Plan (1) Large bowel perforation Code(s): K63.1 - PERFORATION OF INTESTINE (NONTRAUMATIC) Status: Acute Comment: colon perforation due to colon carcinoma with peritonitis, s/p resection with drain placement and washout POD#2, tenuous clinically given co- morbid status, local care, continue Zosyn (2) Septic shock Code(s): A41.9 - SEPSIS, UNSPECIFIED ORGANISM; R65.21 - SEVERE SEPSIS WITH SEPTIC SHOCK Status: Acute Comment: Secondary to peritonitis and bowel perforation, continue IVF's, Levophed off currently, continue IVF's (3) Peritonitis (acute) generalized Code(s): K65.0 - GENERALIZED (ACUTE) PERITONITIS Status: Acute Comment: See above, POD#2 with bowel resection, drains in place, monitor ostomy output (4) Obstructive jaundice due to cancer Code(s): K83.1 - OBSTRUCTION OF BILE DUCT; C80.1 - MALIGNANT (PRIMARY) NEOPLASM , UNSPECIFIED Status: Chronic Comment: May consider stent placement if worsens post-op, GI consultation (5) Colon carcinoma metastatic to liver Code(s): C18.9 - MALIGNANT NEOPLASM OF COLON, UNSPECIFIED; C78.7 - SECONDARY MALIG NEOPLASM OF LIVER AND INTRAHEPATIC BILE DUCT Status: Chronic Comment: Stage IV disease with hepatic/pulmonary involvement, Hospice consult, final pathology pending (6) MISHA (acute kidney injury) Code(s): N17.9 - ACUTE KIDNEY FAILURE, UNSPECIFIED Status: Acute Comment: Improved, continue IVF's, avoid nephrotoxic meds and limit contrast exposure - Plan plan discussed w/ family, continue antibiotics, social services manager, DVT proph w/ SCDs Continue supportive mgmt -: Poor prognosis overall -: Hospice/Palliative care measures -: Continue Zosyn -: AM lab: CMP, CBC * Clear liquids * Transfer to Oncology unit
--- NOTE | 2018-10-18 14:46 | PRG ---
DATE OF SERVICE: 10/18/2018 SUBJECTIVE: Ms. Bright is quite animated today. OBJECTIVE: GENERAL: She is very pleasant, cooperative. VITAL SIGNS: Heart rate is 100, blood pressure 116/65, respiratory rate is in the 20s, oximetry is 93%. LUNGS: Clear. HEART: Regular rhythm. ABDOMEN: Diffusely mildly tender. LABORATORY DATA: White count 18, hemoglobin 8.9, platelets 349. Sodium 143, potassium 3.3, chloride 110, bicarb 24, BUN 34, and creatinine 0.8. Glucose was 36 and 35 early this morning, it is 196 at 6:30 and 90 at 9:30. IMPRESSION: 1. Peritonitis secondary to colon perforation. 2. Widely metastatic colon cancer. 3. Extreme cachexia. 4. Heavy tobacco use up until admission. PLAN: Nicotine patch will be added. Her glucose is drifting down, so she probably needs to have her IV fluids switched to at least D5 normal saline. Family is saying that she may want to go home with hospice. I do feel that since she is a do not resuscitate patient, she can transfer out of the critical care environment. Critical care time 30 minutes. Job ID: [id number]
[2018-10-18] MEDS ORDERED: Lorazepam 2 MG/ML VIAL SLOW IVP PRN (15:36)
--- NOTE | 2018-10-19 00:11 | PRG ---
DATE OF SERVICE: 10/18/2018 SUBJECTIVE: Hillary Bright has been transferred from ICU to the oncology floor as family and the patient decided hospice status. She has metastatic colon cancer, status post perforation with fecal peritonitis, right colectomy and ileostomy. The ileostomy is healthy. It has had only 200 mL out. NG tube output, however, has been 1050 over the last 24 hours. Urine output is good. White count 18, hemoglobin 8.9. She has been hypoglycemic and she has been given apple juice occasionally. When she was transferred from the ICU to the oncology floor, I was asked whether the NG tube should be left in place and I suggested to be left in place until I see her. By the time when I arrived, the patient is confused, receiving some medication for sleep and she has removed her NG tube. OBJECTIVE: LUNGS: Clear to auscultation. CARDIAC: Regular rate and rhythm without murmur or gallop. ABDOMEN: Soft, nondistended, non-tympanitic. Ileostomy healthy. ASSESSMENT AND PLAN: Would continue n.p.o. except for meds, sips of water, sips of apple juice, orange juice as necessary. If she does not develop any nausea or vomiting, could advance her to clear liquids. Continue palliation and hospice care. Hopefully, we can avoid placing another NG tube. Job ID: [id number]
[2018-10-19] MEDS: Dextrose 5 % And 0.9 % NaCl 1,000 ML IV SCH ×3 (05:32→17:21)
[2018-10-19] MEDS: Piperacillin/Tazobactam 3.375 GM in Sodium Chloride 0.9% 100 ML IVPB SCH ×4 (05:32→17:35)
[2018-10-19 06:33] LABS: ALT (SGPT) 106 U/L (8-55); AST (SGOT) 143 U/L (5-34); Alkaline Phosphatase 419 U/L (40-150); Anion Gap 11 mmol/L (10-20); BUN (Urea Nitrogen) 26 mg/dL (9.8-20.1); Bilirubin, Total 7.9 mg/dL (0.2-1.2); Calc. Creatinine Clearance 56 mL/min (70-130); Calcium 8.3 mg/dL (7.8-10.44); Carbon Dioxide 24 mmol/L (23-31); Chloride 113 mmol/L (98-107); Estimated GFR-MDRD 90; Globulin 2.6 g/dL (2.4-3.5); Glucose 141 mg/dL (80-115); Potassium 2.5 mmol/L (3.5-5.1); Protein, Total 4.6 g/dL (6.0-8.3); Sodium 145 mmol/L (136-145)
[2018-10-19 07:40] LABS: Anisocytosis SLIGHT = 6-15 cells (100X) (0-5/hpf); Band 32 % (5-11); Hemoglobin 8.7 g/dL (12.0-16.0); Hypochromia SLIGHT = 6-15 cells (100X) (0-5/hpf); Lymphocytes 7 % (21-51); MDiff Complete? YES; Mean Corpuscular Hemoglobin 28.7 pg (27.0-31.0); Mean Corpuscular Volume 92.5 fL (78.0-98.0); Mean Platelet Volume 10.6 fL (7.4-10.4); Metamyelocyte 2 % (0-0); Monocytes 5 % (0-10); Neutrophil 54 % (42-75); Platelet Count 310 thou/uL (130-400); RBC Distribution Width 19.1 % (11.5-14.5); Red Blood Cell (RBC) Count 3.03 mill/uL (4.20-5.40); Target Cells SLIGHT = 2-5 cells (100X) (0-1/hpf); White Blood Cell (WBC) Count 22.5 thou/uL (4.8-10.8)
[2018-10-19] MEDS: Potassium Chloride 20 MEQ in Premix Bag 1 BAG IVPB SCH ×2 (07:58→10:36)
[2018-10-19] MEDS ORDERED: Nicotine 21 MG PATCH TD SCH ×2 (09:00)
[2018-10-19] MEDS: Pantoprazole 40 MG VIAL IVP SCH (10:07)
[2018-10-19] MEDS: Fluconazole In NaCl,Iso-Osm 200 MG in Premix Bag 1 BAG IVPB SCH (10:07)
--- NOTE | 2018-10-19 10:22 | RAD ---
PORTABLE CHEST 1 VIEW: Date; 10/19/18 Time: 0612 hours HISTORY: Respiratory distress. FINDINGS/IMPRESSION: There has been interval removal of the nasogastric tube since the previous day's exam. Right-sided Po rt-A-Cath remains in place. The heart size is normal. There is pulmonary vascular congestion with giorgio ateral pleural effusions and bibasilar infiltrates/atelectatic changes. No pneumothoraces are seen. POS: H
[2018-10-19] MEDS: Enoxaparin Sodium 30 MG/0.3 ML SYRINGE SC SCH (10:32)
--- NOTE | 2018-10-19 11:16 | PDOC.PN ---
- Subjective Encounter Start Date: 10/19/18 Encounter Start Time: 19:00 Subjective: Alert, Confused.. - Objective Resuscitation Status - Order Detail: 10/16/18 16:06 Resuscitation Status Routine Resuscitation Status: DNAR: NO Resuscitation Discussed with: Patient Vital Signs & Weight: Vital Signs (12 hours) Temp Pulse Resp BP Pulse Ox 10/19/18 08:00 98.8 F 137 H 28 H 131/71 93 L 10/19/18 04:00 97.3 F L 137 H 20 122/65 96 10/18/18 23:24 98.4 F 140 H 20 129/67 97 Weight Admit Weight 91 lb Weight 91 lb 7.869 oz Most Recent Monitor Data Heart Rate from ECG 136 NIBP 110/60 NIBP BP-Mean 72 Respiration from ECG 36 SpO2 88 I&O: 10/18/18 10/19/18 10/20/18 06:59 06:59 06:59 Intake Total 5470.5 3544.8 Output Total 2276 1620 Balance 3194.5 1924.8 Result Diagrams: 10/19/18 05:39 10/19/18 05:39 Additional Labs: Accuchecks 10/19/18 10/18/18 10/18/18 05:43 23:41 20:11 POC Glucose 136 H 118 H 104 10/18/18 16:42 POC Glucose 67 L Phys Exam - Physical Examination Constitutional: NAD Neck: no JVD Respiratory: clear to auscultation bilateral Cardiovascular: RRR Gastrointestinal: non-tender Musculoskeletal: no edema Neurological: moves all 4 limbs Skin: no rash Dx/Plan (1) Sepsis Code(s): A41.9 - SEPSIS, UNSPECIFIED ORGANISM Status: Acute (2) Large bowel perforation Code(s): K63.1 - PERFORATION OF INTESTINE (NONTRAUMATIC) Status: Acute Comment: colon perforation due to colon carcinoma with peritonitis, s/p resection with drain placement and washout POD#2, tenuous clinically given co- morbid status, local care, continue Zosyn (3) MISHA (acute kidney injury) Code(s): N17.9 - ACUTE KIDNEY FAILURE, UNSPECIFIED Status: Acute Comment: Resolved. (4) Colon carcinoma metastatic to liver Code(s): C18.9 - MALIGNANT NEOPLASM OF COLON, UNSPECIFIED; C78.7 - SECONDARY MALIG NEOPLASM OF LIVER AND INTRAHEPATIC BILE DUCT Status: Chronic Comment: Stage IV disease with hepatic/pulmonary involvement, Hospice consult, final pathology pending (5) Hypokalemia Code(s): E87.6 - HYPOKALEMIA Status: Acute Plan: Supplementede. Check Magnesium level... - Plan -: Continue supportive therapy.. * .
[2018-10-19] MEDS: Morphine 4 MG/ML VIAL SLOW IVP PRN ×2 (13:11→15:48)
[2018-10-19 13:23] VITALS: BP 95/53; TEMP 98
--- NOTE | 2018-10-19 15:06 | PRG ---
DATE OF SERVICE: 10/19/2018 SUBJECTIVE: She is in the oncology unit, had agonal respiration, she was just given some morphine. OBJECTIVE: VITAL SIGNS: Respiratory rate is about 40, pulse 125, temperature 98, blood pressure is 90/60. CHEST: Decreased breath sounds. No wheezing. CARDIAC: Normal S1 and S2. No gallop no murmers_ IMPRESSION: Metastatic colon cancer, respiratory failure terminal I will discontinue all lab, antibiotics, medication except for morphine. Terminal event. Job ID: [id number] MTDD
[2018-10-19] MEDS ORDERED: Hyoscyamine Sulfate SL 0.125 mg Tablet SL PRN (18:41)
[2018-10-19] MEDS ORDERED: Ondansetron PF 4 MG/2 ML Vial SLOW IVP PRN (18:42)
[2018-10-19] MEDS ORDERED: Morphine 4 MG/ML VIAL SLOW IVP SCH (20:00)
--- NOTE | 2018-10-20 22:04 | DIS ---
DATE OF ADMISSION: 10/16/2018 DATE OF DISCHARGE: 10/19/2018 DISCHARGE SUMMARY DISCHARGE DATE: 10/19/2018. ADMITTING DIAGNOSES: 1. Acute bowel obstruction. 2. Stage 4 colon carcinoma. 3. Obstructive jaundice. 4. Severe protein-calorie malnutrition. 5. Gastroesophageal reflux disease sepsis, large bowel perforation with peritonitis. 6. Acute kidney injury. 7. Metastatic colon carcinoma. 8. Hypokalemia. CONSULTANTS: Dr. Cesar, Dr. Khan, Dr. Hamilton, Dr. Lake, Dr. Skaggs, and Dr. Damon. PROCEDURES: Abdomen and pelvis CT, chest x-ray, exploratory laparotomy with right hemicolectomy and ileostomy. HOSPITAL COURSE: Course of hospitalization, responded well to management. She was terminal because of her cancer and she was pronounced at around 1920 hours on October 19, 2018 after she was placed in hospice. Job ID: [id number]
== END 2018-10-19 21:40 | disposition expired | DRG 853 ==
LOC: T4-B 13:50 → CCU 21:16 → ONC 10-18 17:23
PROVIDERS: ADMIT Family Medicine; ATTEND Family Medicine
PROC: 0DTF0ZZ Resection of Right Large Intestine, Open Approach (ICD-10-PCS; principal; 2018-10-16)
PROC: 0D1B0Z4 Bypass Ileum to Cutaneous, Open Approach (ICD-10-PCS; 2018-10-16)
DX: A41.9 Sepsis, unspecified organism (principal); E43 Unspecified severe protein-calorie malnutrition; K63.1 Perforation of intestine (nontraumatic); K83.1 Obstruction of bile duct; K65.0 Generalized (acute) peritonitis; R65.21 Severe sepsis with septic shock; J96.90 Respiratory failure, unspecified, unspecified whether with hypoxia or hypercapnia; C18.9 Malignant neoplasm of colon, unspecified; C78.5 Secondary malignant neoplasm of large intestine and rectum; K56.699 Other intestinal obstruction unspecified as to partial versus complete obstruction; Z68.1 Body mass index [BMI] 19.9 or less, adult; N17.9 Acute kidney failure, unspecified; C78.7 Secondary malignant neoplasm of liver and intrahepatic bile duct; C78.00 Secondary malignant neoplasm of unspecified lung; R64 Cachexia; K21.9 Gastro-esophageal reflux disease without esophagitis; D50.9 Iron deficiency anemia, unspecified; Z51.5 Encounter for palliative care; Z66 Do not resuscitate; Z72.0 Tobacco use; E16.2 Hypoglycemia, unspecified; E87.5 Hyperkalemia
CPT/HCPCS: 36415; 36416; 71045; 74176; 80048; 80053; 82248; 82378; 82533; 82805; 83605; 83615; 83735; 84100; 84550; 85007; 85027; 85060; 85610; 85730; 87040; 87076; 87149; 88309; 94002; 94003; C9113; J0131; J1450; J1650; J2060; J2250; J2270; J2370; J2543; J2550; J2704; J3010; J3370; J3480; J7050; P9045; S0028